=== PATIENT | female | born 2000 | race Caucasian/White ===

== ENCOUNTER 2023-02-01 02:05 | Emergency (ER) | payer OTHER, SELFPAY ==
[2023-02-01 02:11] VITALS: PULSE 117; O2SAT 100
--- NOTE | 2023-02-01 02:14 | DI.RAD.S_ITS ---
PROCEDURE: XR CHEST 1V INDICATIONS: chest pain TECHNIQUE: One view of the chest was acquired. COMPARISON: None. FINDINGS: Surgical changes and devices: None. Lungs and pleura: Lungs are clear. No pleural effusions or pneumothorax. Mediastinum: Mediastinal contours appear normal. Heart size is normal. Bones and chest wall: No suspicious bony lesions. Overlying soft tissues appear unremarkable. IMPRESSION: Portable chest within normal limits for age. Dictated by: Kimberly Washburn M.D. on 02/01/2023 at 8:13 Approved by: Kimberly Washburn M.D. on 02/01/2023 at 8:14
[2023-02-01 02:15] VITALS: BP 152/79; PULSE 120; RESP 18; TEMP 36.5; O2SAT 100; BMI 35.4
--- NOTE | 2023-02-01 02:16 | ED.CHESTPAIN ---
HPI - Chest Pain General Chief Complaint: Neck Pain/Injury Stated Complaint: tightness in neck, high heart rate Time Seen by Provider: 02/01/23 02:14 History of Present Illness HPI narrative: Patient healthy 22-year-old female who presents with sudden onset of heart palpitations and left-sided neck pain. She admits to drinking alcohol last evening and she smoked a dab about 1 hour prior to her symptoms. She reports that she she was sitting as a passenger in a car when she felt her heart rate spike up suddenly. She has feeling some palpitations no shortness of breath she fell radiation into her jaw. No nausea or vomiting. She reports that she has used dab many times previously and has never had this type of response. Related Data Allergies Allergy/AdvReac Type Severity Reaction Status Date / Time No Known Drug Allergies Allergy Verified 02/01/23 02:31 Review of Systems Review of Systems ROS Unobtainable: All systems reviewed & are unremarkable except as noted in HPI and below Patient History Social History Smoking Status: Current some day smoker Exam Initial Vital Signs Initial Vital Signs: Vital Signs Pulse Rate 117 H 02/01/23 02:11 Pulse Oximetry 100 02/01/23 02:11 Oxygen Delivery Method Room Air 02/01/23 02:11 GENERAL: Alert 22-year-old female and in no acute distress. HEENT: Head atraumatic,EOMI, pupils reactive, face symmetric, moist mucous membranes CARDIOVASCULAR: Tachycardic regular no murmur RESPIRATORY: Breath sounds equal bilaterally, no wheezes rales or rhonchi. ABDOMEN: Soft, nontender. Normoactive bowel sounds all 4 quadrants. No guarding or rebound. EXTREMITIES: Normal range of motion, no clubbing or edema. Neurovascularly intact NEUROLOGICAL: Alert and oriented x4. SKIN: Warm, dry, no laceration, no petechiae, no rashes or lesions. Course Orders Ordered: ED Orders 02/01/23 02:14 Chest [XR chest 1V] Stat EKG-12 Lead Stat Vital Signs Vital signs: Vital Signs - 8 hr 02/01/23 02:15 02/01/23 02:11 02/01/23 02:27 Temperature 97.7 F Pulse Rate 120 H 117 H 94 H Respiratory Rate 18 Blood Pressure 152/79 H Pulse Oximetry 100 100 Oxygen Delivery Method Room Air Room Air 02/01/23 02:30 02/01/23 02:30 02/01/23 03:00 Temperature Pulse Rate 90 Respiratory Rate 18 Blood Pressure 134/68 134/68 Pulse Oximetry 100 Oxygen Delivery Method 02/01/23 03:00 Temperature Pulse Rate 97 H Respiratory Rate 18 Blood Pressure Pulse Oximetry 97 Oxygen Delivery Method MDM - Chest Pain MDM Narrative Medical decision making narrative: 22-year-old female presents today with palpitations and heart rate in the 120s. She does have a heart rate on the monitor initially in the 120s but quickly while I am talking to her in the room drops to 100 and eventually below 100. She is afebrile mildly anxious. Lungs are clear chest x-ray is clear. EKG shows a normal sinus rhythm. Have low suspicion for pulmonary embolism or other cause of tachycardia. I suspect that this may be reactionary to marijuana and alcohol possibly anxiety. This time I really see no need for any further workup. Discharge Plan Departure Patient Disposition: Home Clinical Impression: Heart palpitations Instructions: DI for Palpitations Activity Restrictions/Additional Instructions: *You have been diagnosed with heart palpitations *What to do: At this time heart rate has improved. He may require a monitor if this should happen again. Please talk to your PCP about this. *Continue to take medications as directed *Follow up with your primary care provider in 2-3 days or call [phone] *Return to ER if you should have increasing chest pain palpitations passing or any new, worsening or concerning symptoms Stand Alone Forms: Patient Portal/API
[2023-02-01 02:27] VITALS: PULSE 94
[2023-02-01 02:30] VITALS: BP 134/68; PULSE 90; RESP 18; O2SAT 100
[2023-02-01 03:00] VITALS: BP 134/68; PULSE 97; RESP 18; O2SAT 97
== END 2023-02-01 03:09 | disposition home or self-care (01) ==
PROVIDERS: Emergency Provider Emergency Medicine
DX: R00.2 Palpitations (principal); M54.2 Cervicalgia; R07.9 Chest pain, unspecified
CPT/HCPCS: 71045; 93005; 93010; 99281; 99284